=== PATIENT | male | born 1975 | race Caucasian/White ===

== ENCOUNTER 2021-07-15 14:44 | Outpatient (CLI) | payer BC | END 2021-07-15 14:45 | disposition home or self-care (01) | LOC: CSHMRI 14:44 | PROVIDERS: ATTEND Otolaryngology Plastic Surgery within the Head & Neck | DX: H90.3 Sensorineural hearing loss, bilateral (principal); H83.92 Unspecified disease of left inner ear | CPT/HCPCS: 70553 ==